=== PATIENT | female | born 1955 | race Caucasian/White ===

== ENCOUNTER 2025-05-04 18:09 | Emergency (ER) | payer MEDICARE, OTHER, SELFPAY ==
[2025-05-04 18:24] VITALS: BP 184/100
[2025-05-04 21:03] VITALS: BP 177/98; BMI 20.6
--- NOTE | 2025-05-05 00:44 | ED.GENMED ---
History of Present Illness
General
Chief Complaint: Eye Problems
Source: patient
Exam Limitations: none
Time Seen by Provider: 05/04/25 21:13
Nursing documentation reviewed up to this point in time: agreed with
History of Present Illness
History of Present Illness:
Patient to ED for eval of redness to left lateral eye. SOn states she had a stressful day today and her BP was elevated. Brought her to ED for eval. SHe denies headache, dizziness, vision changes. No SOB, CP/pressure. No history of trauma.
Past History
Past History
ED Past Medical History: HTN
Review of Systems
Review of Systems
Allergies reviewed?: Yes
All Other Systems: ROS reviewed and negative except as documented in HPI and ROS
Constitutional: Reports no symptoms
EENT: Reports other (redness left lat eye)
Respiratory: Reports no symptoms
Cardiac: Reports no symptoms
ABD/GI: Reports no symptoms
: Reports no symptoms
Musculoskeletal: Reports no symptoms
Skin: Reports no symptoms
Neurological: Reports no symptoms
Psychiatric: Reports no symptoms
Phy Exam
General Physical Exam
General Presentation: well appearing and no apparent distress
General age: appears stated age
General Skin: warm and dry
General Habitus: normal
General Mental: alert
Eye Exam
Eye Exam: PERRL, EOMI, globe normal and other (small left lateral subconjunctival hemorrhage)
Neurological Exam
Neurological Exam: alert, oriented x3, no motor deficits, no sensory deficits and speech normal
Musculoskeletal Exam
Musculoskeletal Exam: full ROM and neuro vasc intact
Skin Exam
Skin Exam: normal color, warm/dry and no rash
Psychiatric Exam
Psychiatric Exam: normal mood/affect
Course
Vital Signs
Initial and Last Documented VS:
Initial Vital Signs
Temp Pulse Resp BP Pulse Ox
98.8 F 85 18 184/100 99
05/04/25 18:24 05/04/25 18:24 05/04/25 18:24 05/04/25 18:24 05/04/25 18:24
Last Documented Vital Signs
Temp Pulse Resp BP Pulse Ox
98.8 F 82 18 177/98 99
05/04/25 18:24 05/04/25 21:03 05/04/25 21:03 05/04/25 21:03 05/05/25 00:44
*Pulse Oximetry
SaO2: 99
Oxygen Mode of Delivery: Room air
Patient hypoxic: no
*Critical Care Note
Total Time (30-74mins, 75-104mins- exclusive of procedures): Not Applicable
Update Note
Update Note:
Patient to ED for eval of small left lateral subconjunctival hemorrage. Neurologically she is at her baseline. No concerning findings on non dilated eye exam. EOMI, PERRL. No lid redness or swelling. Will discharge home, ice prn. SHe has a
private opthalmologist and will follow up this week. BP elevation noted in ED. She did not have her BP medication earlier, took it in ED just prior to discharge. Son will monitor BP readings at home and follow up with PCP. Given instrutions on
s/s to return to ED and they are agreeable to plan.
ED Attending Note
-
Portions of this chart may have been created with voice recognition software.� Occasional wrong word or��sound alike� substitutions may have occurred due to the inherent limitations of voice recognition software.
Discharge Plan
Departure
Patient Disposition: Home (Routine Discharge)
Date of Disposition: 05/04/25
Time of Disposition: 21:39
Patient with high blood pressure during this ER visit?: No
Condition: Good
Covid-19: Not Applicable
Discharge Problem:
Subconjunctival hemorrhage
Instructions: Subconjunctival hemorrhage, BLOOD PRESSURE
Referrals:
Lorenzo,Willy F., MD [Family Provider, Family Practice]
Interventions
Interventions:
*Risk Screen - Suicide Last Done: 05/04/25 18:29
*General Assessment Last Done: 05/04/25 18:29
*Neglect/Abuse Screening Last Done: 05/04/25 18:29
*ED COVID-19 Vaccine History Last Done: 05/04/25 18:29
*Nursing Disposition Last Done: 05/04/25 21:49
Discharge Date and Time
Discharge Date/Time: 05/04/25 21:50
Print Language: GERMAN
== END 2025-05-04 21:50 | disposition home or self-care (01) ==
LOC: EMR 18:09
PROVIDERS: EMERGENCY PHYSICIAN Emergency Medicine; FAMILY PHYSICIAN Family Medicine
DX: H11.31 Conjunctival hemorrhage, right eye (principal)
CPT/HCPCS: 99282